=== PATIENT | female | born 1950 | race Caucasian/White ===

== ENCOUNTER → 2017-11-27 | Outpatient (CLI) | payer MEDICARE ==
[~2017-11-27] MED LIST: AZIT250 PO; BREO ELLIPTA 11 EACH IH; CEFP250 PO; CEFU500 PO; CITA20 MT; CYCL10 PO; DOCU100 PO; DULO30 PO; GABA300 PO; LORA2 PO; MELO7.5 PO; MORP30 PO; NAPR500 PO; NEBI5 PO; OXYACE5T PO; OXYC30ER PO; PRED10 PO; Prednisone20 MG PO; TEMA15 PO; TRAZ50 PO
[2017-11-27 17:01] LABS: Hematocrit 44.7 % (33.0-51.0); Hemoglobin 12.8 g/dL (11.5-16.0); Mean Corpuscular HGB 31.3 pg (26.0-34.0); Mean Corpuscular HGB Conc 28.6 g/dL (31.5-36.5); Mean Corpuscular Volume 109 fL (80-100); Mean Platelet Volume 12.2 fL (9.1-12.4); Platelet Count 227 K/mm3 (150-400); RDW Standard Deviation 66.4 fL (35.1-46.3); Red Blood Cell Count 4.09 M/mm3 (3.80-5.20)
[2017-11-27 17:24] LABS: Alanine Aminotransfer (ALT/SGP 33 U/L (12-78); Albumin/Globulin Ratio 1.7 (0.8-1.8); Alk Phos 354 U/L (50-136); Anion Gap 5 mmol/L (6-16); Aspartate Aminotrans (AST/SGOT 27 U/L (12-37); Bilirubin, Total 0.3 mg/dL (0.1-1.0); Blood Urea Nitrogen 13 mg/dL (8-24); CO2, Blood 27 mmol/L (21-32); Calcium, Blood 9.5 mg/dL (8.5-10.1); Chloride, Blood 109 mmol/L (98-108); Creatinine, Blood 0.81 mg/dL (0.40-1.00); Globulin, Blood 2.3 g/dL (2.2-4.0); Glomerular Filtration Rate >60 (60-); Glucose, Blood 84 mg/dL (70-99); Potassium, Blood 4.1 mmol/L (3.5-5.5); Sodium, Blood 141 mmol/L (136-145); Total Protein, Blood 6.3 g/dL (6.4-8.2)
[2017-11-27 18:35] LABS: BASOPHILS PERCENT MAN 0 % (0-2); EOSINOPHILS PERCENT MAN 0 % (0-6); LYMPHOCYTES ABSOLUTE MAN 235.28 K/mm3 (0.84-5.20); LYMPHOCYTES PERCENT MAN 94 % (21-46); MONOCYTES PERCENT MAN 0 % (4-13); NEUTROPHILS ABSOLUTE MAN 15.01 K/mm3 (1.96-9.15); SEG NEUTROPHILS PERCENT MAN 6 % (41-73); TOTAL CELLS COUNTED 100
== END | disposition home or self-care (01) ==
LOC: LAB SHORT 16:43 → LAB 16:43
PROVIDERS: Internal Medicine Hematology & Oncology
DX: C91.10 Chronic lymphocytic leukemia of B-cell type not having achieved remission (principal)
CPT/HCPCS: 80053; 85025

== ENCOUNTER → 2017-12-25 | Outpatient (CLI) | payer MEDICARE ==
[2017-12-25 17:36] LABS: Hematocrit 41.4 % (33.0-51.0); Hemoglobin 12.2 g/dL (11.5-16.0); Mean Corpuscular HGB 32.2 pg (26.0-34.0); Mean Corpuscular HGB Conc 29.5 g/dL (31.5-36.5); Mean Corpuscular Volume 109 fL (80-100); Mean Platelet Volume 12.2 fL (9.1-12.4); Platelet Count 192 K/mm3 (150-400); RDW Coefficient Variation 17.5 % (11.7-14.2); RDW Standard Deviation 63.8 fL (35.1-46.3); Red Blood Cell Count 3.79 M/mm3 (3.80-5.20)
[2017-12-25 17:58] LABS: IMMATURE GRAN ABSOLUTE AUTO 0.47 K/mm3 (0.00-0.10); IMMATURE GRAN PERCENT AUTO 0 % (0-1)
[2017-12-25 18:05] LABS: BASOPHILS PERCENT MAN 0 % (0-2); EOSINOPHILS PERCENT MAN 0 % (0-6); LYMPHOCYTES ABSOLUTE MAN 205.32 K/mm3 (0.84-5.20); LYMPHOCYTES PERCENT MAN 96 % (21-46); MONOCYTES PERCENT MAN 0 % (4-13); NEUTROPHILS ABSOLUTE MAN 8.55 K/mm3 (1.96-9.15); SEG NEUTROPHILS PERCENT MAN 4 % (41-73); TOTAL CELLS COUNTED 100
[2017-12-25 18:49] LABS: White Blood Cell Count 213.88 K/mm3 (4.00-11.30)
== END | disposition home or self-care (01) ==
LOC: LAB SHORT 11:52 → LAB 11:52
PROVIDERS: Internal Medicine Hematology & Oncology
DX: C91.10 Chronic lymphocytic leukemia of B-cell type not having achieved remission (principal)
CPT/HCPCS: 85025

== ENCOUNTER → 2018-02-18 | Outpatient (CLI) | payer MEDICARE ==
[2018-02-18 16:50] LABS: Hematocrit 43.8 % (33.0-51.0); Hemoglobin 13.2 g/dL (11.5-16.0); Mean Corpuscular HGB 32.2 pg (26.0-34.0); Mean Corpuscular HGB Conc 30.1 g/dL (31.5-36.5); Mean Corpuscular Volume 107 fL (80-100); Mean Platelet Volume 12.7 fL (9.1-12.4); Platelet Count 219 K/mm3 (150-400); RDW Coefficient Variation 17.1 % (11.7-14.2); RDW Standard Deviation 61.9 fL (35.1-46.3)
[2018-02-18 16:57] LABS: White Blood Cell Count 198.44 K/mm3 (4.00-11.30)
[2018-02-18 17:29] LABS: BASOPHILS PERCENT MAN 0 % (0-2); EOSINOPHILS PERCENT MAN 0 % (0-6); LYMPHOCYTES ABSOLUTE MAN 198.44 K/mm3 (0.84-5.20); LYMPHOCYTES PERCENT MAN 100 % (21-46); MONOCYTES PERCENT MAN 0 % (4-13); TOTAL CELLS COUNTED 100
[2018-02-18 17:32] LABS: SEG NEUTROPHILS PERCENT MAN 0 % (41-73)
== END | disposition home or self-care (01) ==
LOC: LAB SHORT 11:00 → LAB 11:00
PROVIDERS: Internal Medicine Hematology & Oncology
DX: C91.10 Chronic lymphocytic leukemia of B-cell type not having achieved remission (principal)
CPT/HCPCS: 85025

== ENCOUNTER → 2018-03-14 | Outpatient (CLI) | payer MEDICARE | END | disposition home or self-care (01) | LOC: PLD 12:48 → LAB SHORT 12:48 | DX: C44.90 Unspecified malignant neoplasm of skin, unspecified (principal) | CPT/HCPCS: 88305 ==

== ENCOUNTER → 2018-04-23 | Outpatient (CLI) | payer MEDICARE, OTHER ==
[~2018-04-23] MED LIST changes: +DEXA1 PO; +DICL75ER PO; +Flexeril5 MG; +Lyrica150 MG PO; +NYSTRIT TOP; +ONDA4ODT SL; +PRED5 PO; +TOPI25 PO
[2018-04-23 10:37] LABS: Hematocrit 40.7 % (33.0-51.0); Hemoglobin 13.3 g/dL (11.5-16.0); Mean Corpuscular HGB 33.3 pg (26.0-34.0); Mean Corpuscular HGB Conc 32.7 g/dL (31.5-36.5); Mean Corpuscular Volume 102 fL (80-100); Mean Platelet Volume 11.2 fL (9.1-12.4); Platelet Count 150 K/mm3 (150-400); RDW Standard Deviation 69.9 fL (35.1-46.3); Red Blood Cell Count 3.99 M/mm3 (3.80-5.20)
[2018-04-23 10:51] LABS: White Blood Cell Count 88.74 K/mm3 (4.00-11.30)
[2018-04-23 10:52] LABS: Magnesium, Blood 2.3 mg/dL (1.6-2.4)
[2018-04-23 10:54] LABS: Alanine Aminotransfer (ALT/SGP 294 U/L (12-78); Albumin, Blood 3.1 g/dL (3.4-5.0); Albumin/Globulin Ratio 1.4 (0.8-1.8); Alk Phos 299 U/L (50-136); Anion Gap 11 mmol/L (6-16); Aspartate Aminotrans (AST/SGOT 67 U/L (12-37); Bilirubin, Total 0.7 mg/dL (0.1-1.0); Blood Urea Nitrogen 29 mg/dL (8-24); Bun/Creatinine Ratio 40.3 (12.0-20.0); CO2, Blood 21 mmol/L (21-32); Calcium, Blood 8.4 mg/dL (8.5-10.1); Chloride, Blood 109 mmol/L (98-108); Creatinine, Blood 0.72 mg/dL (0.40-1.00); Globulin, Blood 2.2 g/dL (2.2-4.0); Glomerular Filtration Rate >60 (60-); Glucose, Blood 87 mg/dL (70-99); Potassium, Blood 4.2 mmol/L (3.5-5.5); Sodium, Blood 141 mmol/L (136-145); Total Protein, Blood 5.3 g/dL (6.4-8.2)
[2018-04-23 12:07] LABS: BASOPHILS PERCENT MAN 0 % (0-2); EOSINOPHILS PERCENT MAN 0 % (0-6); LYMPHOCYTES ABSOLUTE MAN 81.64 K/mm3 (0.84-5.20); LYMPHOCYTES PERCENT MAN 92 % (21-46); MONOCYTES ABSOLUTE MAN 0.88 K/mm3 (0.16-1.47); MONOCYTES PERCENT MAN 1 % (4-13); NEUTROPHILS ABSOLUTE MAN 6.21 K/mm3 (1.96-9.15); SEG NEUTROPHILS PERCENT MAN 7 % (41-73); TOTAL CELLS COUNTED 100
== END | disposition home or self-care (01) ==
LOC: LAB SHORT 10:24 → LAB 10:24
PROVIDERS: Internal Medicine Hematology & Oncology
DX: C34.90 Malignant neoplasm of unspecified part of unspecified bronchus or lung (principal)
CPT/HCPCS: 80053; 83735; 85025

== ENCOUNTER 2018-04-27 10:00 | Emergency (ER) | payer MEDICARE, OTHER ==
[~2018-04-27] VITALS: Ht 172.7 cm; Wt 99.3 kg
[~2018-04-27 10:00] MED LIST changes: -DEXA1 PO; -DICL75ER PO; -Flexeril5 MG; -Lyrica150 MG PO; -NYSTRIT TOP; -ONDA4ODT SL; -PRED5 PO; -TOPI25 PO
[2018-04-27] MEDS ORDERED: Lyrica150 MG PO (10:17)
[2018-04-27] MEDS ORDERED: Flexeril5 MG (10:18)
[2018-04-27] MEDS ORDERED: TOPI25 PO (10:19)
[2018-04-27] MEDS ORDERED: PRED5 PO (10:20)
[2018-04-27 11:28] LABS: Hematocrit 39.4 % (33.0-51.0); Mean Corpuscular HGB 34.1 pg (26.0-34.0); Mean Corpuscular Volume 103 fL (80-100); Mean Platelet Volume 10.8 fL (9.1-12.4); NRBC ABSOLUTE 0.05 K/mm3 (0.00-0.02); NRBC Auto 0.1 /100 WBC (0.0-0.2); Platelet Count 141 K/mm3 (150-400); RDW Coefficient Variation 18.3 % (11.7-14.2); Red Blood Cell Count 3.81 M/mm3 (3.80-5.20)
[2018-04-27 11:29] LABS: White Blood Cell Count 99.33 K/mm3 (4.00-11.30)
[2018-04-27 11:42] LABS: Anion Gap 8 mmol/L (6-16); Blood Urea Nitrogen 30 mg/dL (8-24); Bun/Creatinine Ratio 46.3 (12.0-20.0); CO2, Blood 24 mmol/L (21-32); Calcium, Blood 8.6 mg/dL (8.5-10.1); Chloride, Blood 108 mmol/L (98-108); Creatinine, Blood 0.65 mg/dL (0.40-1.00); Glomerular Filtration Rate >60 (60-); Glucose, Blood 115 mg/dL (70-99); Potassium, Blood 4.7 mmol/L (3.5-5.5); Sodium, Blood 140 mmol/L (136-145)
[2018-04-27 11:48] LABS: BASOPHILS PERCENT MAN 0 % (0-2); EOSINOPHILS PERCENT MAN 0 % (0-6); LYMPHOCYTES % ATYPICAL MANUAL 13 % (0-0); LYMPHOCYTES ABSOLUTE MAN 80.45 K/mm3 (0.84-5.20); LYMPHOCYTES PERCENT MAN 68 % (21-46); MONOCYTES PERCENT MAN 0 % (4-13); NEUTROPHILS ABSOLUTE MAN 18.87 K/mm3 (1.96-9.15); SEG NEUTROPHILS PERCENT MAN 19 % (41-73); TOTAL CELLS COUNTED 100
[2018-04-27] MEDS ORDERED: NYSTRIT TOP (12:47)
[2018-04-30] MEDS ORDERED: DEXA1 PO (16:20)
[2018-04-30] MEDS ORDERED: DICL75ER PO (16:21)
[2018-04-30] MEDS ORDERED: ONDA4ODT SL (16:22)
== END 2018-04-27 13:37 | disposition home or self-care (01) ==
LOC: ER 10:00
PROVIDERS: Emergency Medicine
DX: B37.2 Candidiasis of skin and nail (principal); L98.429 Non-pressure chronic ulcer of back with unspecified severity; C91.10 Chronic lymphocytic leukemia of B-cell type not having achieved remission; F17.210 Nicotine dependence, cigarettes, uncomplicated; Z79.899 Other long term (current) drug therapy; Z79.52 Long term (current) use of systemic steroids
CPT/HCPCS: 74177; 80048; 83605; 85025; 99284-25; Q9967

== ENCOUNTER 2018-04-29 09:41 | Day surgery (SDC) | payer MEDICARE, OTHER ==
[~2018-04-29 09:41] MED LIST changes: +Flexeril5 MG; +Lyrica150 MG PO; +NYSTRIT TOP; +PRED5 PO; +TOPI25 PO
[2018-04-30] MEDS ORDERED: DEXA1 PO (16:20)
[2018-04-30] MEDS ORDERED: DICL75ER PO (16:21)
[2018-04-30] MEDS ORDERED: ONDA4ODT SL (16:22)
== END 2018-04-29 22:40 | disposition home or self-care (01) ==
LOC: WOUND 09:41
DX: L89.152 Pressure ulcer of sacral region, stage 2 (principal); C91.90 Lymphoid leukemia, unspecified not having achieved remission
CPT/HCPCS: G0463

== ENCOUNTER 2018-05-02 08:39 | Day surgery (SDC) | payer MEDICARE, OTHER ==
[~2018-05-02] VITALS: Ht 177.8 cm; Wt 99.3 kg
[~2018-05-02 08:39] MED LIST changes: +DEXA1 PO; +DICL75ER PO; +ONDA4ODT SL
== END 2018-05-02 22:38 | disposition home or self-care (01) ==
LOC: ORSCMMR 08:39 → ORD 10:15 → ORSCMMR 10:15
PROVIDERS: Surgery
PROC: B5131ZA Fluoroscopy of Right Jugular Veins using Low Osmolar Contrast, Guidance (ICD-10-PCS; principal; 2018-05-02 10:15)
PROC: 05HM33Z Insertion of Infusion Device into Right Internal Jugular Vein, Percutaneous Approach (ICD-10-PCS; principal; 2018-05-02 10:15)
DX: C34.90 Malignant neoplasm of unspecified part of unspecified bronchus or lung (principal); K21.9 Gastro-esophageal reflux disease without esophagitis; Z87.891 Personal history of nicotine dependence; Z79.899 Other long term (current) drug therapy
CPT/HCPCS: 77001; 93005; 93010; C1788; J0690; J1642; J2250; J3010; J7120

== ENCOUNTER → 2018-05-03 | Outpatient (CLI) | payer MEDICARE, OTHER ==
[~2018-05-03] MED LIST changes: +ALPR.25 PO; +DULERA 200 MCG/13 GM INH; +FURO20 PO; +LISI5 PO; +NYST100000 PO; +Nystatin15 GM TOP; +TIOT18 INH; +Zithromax250 MG PO
[2018-05-03 12:43] LABS: Magnesium, Blood 2.2 mg/dL (1.6-2.4)
[2018-05-03 13:05] LABS: Alanine Aminotransfer (ALT/SGP 103 U/L (12-78); Albumin, Blood 2.7 g/dL (3.4-5.0); Albumin/Globulin Ratio 1.2 (0.8-1.8); Alk Phos 285 U/L (50-136); Anion Gap 8 mmol/L (6-16); Aspartate Aminotrans (AST/SGOT 41 U/L (12-37); Bilirubin, Total 1.5 mg/dL (0.1-1.0); Blood Urea Nitrogen 28 mg/dL (8-24); Bun/Creatinine Ratio 35.9 (12.0-20.0); CO2, Blood 24 mmol/L (21-32); Calcium, Blood 8.4 mg/dL (8.5-10.1); Chloride, Blood 107 mmol/L (98-108); Creatinine, Blood 0.78 mg/dL (0.40-1.00); Globulin, Blood 2.3 g/dL (2.2-4.0); Glomerular Filtration Rate >60 (60-); Glucose, Blood 186 mg/dL (70-99); Potassium, Blood 4.1 mmol/L (3.5-5.5); Sodium, Blood 139 mmol/L (136-145)
== END | disposition home or self-care (01) ==
LOC: LAB SHORT 07:50 → LAB 07:50
PROVIDERS: Internal Medicine Hematology & Oncology
DX: C34.90 Malignant neoplasm of unspecified part of unspecified bronchus or lung (principal); C91.10 Chronic lymphocytic leukemia of B-cell type not having achieved remission
CPT/HCPCS: 80053; 83735

== ENCOUNTER 2018-05-04 09:49 | Emergency (ER) | payer MEDICARE, OTHER ==
[~2018-05-04] VITALS: Ht 172.7 cm; Wt 99.3 kg
[~2018-05-04 09:49] MED LIST changes: -ALPR.25 PO; -DULERA 200 MCG/13 GM INH; -FURO20 PO; -LISI5 PO; -NYST100000 PO; -Nystatin15 GM TOP; -TIOT18 INH; -Zithromax250 MG PO
[2018-05-04 10:45] LABS: Hematocrit 38.4 % (33.0-51.0); Hemoglobin 12.3 g/dL (11.5-16.0); Mean Corpuscular HGB 33.5 pg (26.0-34.0); Mean Corpuscular Volume 105 fL (80-100); Mean Platelet Volume 12.1 fL (9.1-12.4); NRBC ABSOLUTE 0.03 K/mm3 (0.00-0.02); Platelet Count 116 K/mm3 (150-400); RDW Coefficient Variation 17.1 % (11.7-14.2); RDW Standard Deviation 63.5 fL (35.1-46.3); Red Blood Cell Count 3.67 M/mm3 (3.80-5.20)
[2018-05-04 10:47] LABS: White Blood Cell Count 94.89 K/mm3 (4.00-11.30)
[2018-05-04 10:58] LABS: Alanine Aminotransfer (ALT/SGP 110 U/L (12-78); Albumin, Blood 2.8 g/dL (3.4-5.0); Albumin/Globulin Ratio 0.8 (0.8-1.8); Alk Phos 316 U/L (50-136); Anion Gap 8 mmol/L (6-16); Aspartate Aminotrans (AST/SGOT 32 U/L (12-37); Blood Urea Nitrogen 29 mg/dL (8-24); Bun/Creatinine Ratio 40.7 (12.0-20.0); CO2, Blood 26 mmol/L (21-32); Calcium, Blood 9.3 mg/dL (8.5-10.1); Chloride, Blood 108 mmol/L (98-108); Creatinine, Blood 0.71 mg/dL (0.40-1.00); Globulin, Blood 3.7 g/dL (2.2-4.0); Glomerular Filtration Rate >60 (60-); Glucose, Blood 144 mg/dL (70-99); Potassium, Blood 4.1 mmol/L (3.5-5.5); Sodium, Blood 142 mmol/L (136-145); Total Protein, Blood 6.5 g/dL (6.4-8.2); Troponin I 0.039 ng/mL (0.000-0.040)
[2018-05-04 11:11] LABS: BAND PERCENT MAN 1 % (0-8); BASOPHILS PERCENT MAN 0 % (0-2); EOSINOPHILS PERCENT MAN 0 % (0-6); LYMPHOCYTES ABSOLUTE MAN 87.29 K/mm3 (0.84-5.20); LYMPHOCYTES PERCENT MAN 92 % (21-46); MONOCYTES ABSOLUTE MAN 0.94 K/mm3 (0.16-1.47); MONOCYTES PERCENT MAN 1 % (4-13); MYELOCYTE ABSOLUTE MAN 0.94 K/mm3 (0.00-0.00); MYELOCYTE PERCENT MAN 1 % (0-0); NEUTROPHILS ABSOLUTE MAN 5.69 K/mm3 (1.96-9.15); SEG NEUTROPHILS PERCENT MAN 5 % (41-73); TOTAL CELLS COUNTED 100
[2018-05-04 14:34] LABS: Blood, Urine 4+ (Neg); Color, Urine Yellow (P-Yellow); Glucose Qualitative, Urine Neg (Neg); Ketones, Urine 1+ (Neg); Leukocyte Esterase, Urine 1+ (Neg); Nitrite, Urine Neg (Neg); Protein, Urine 2+ (Neg); Specific Gravity, Urine 1.015 (1.003-1.022); Urobilinogen, Urine 3+ (Normal)
[2018-05-04 14:53] LABS: Bilirubin, Urine 1+ (Neg)
[2018-05-04 14:54] LABS: Amorphous Light (0-Heavy); Appearance, Urine Clear (Clear); Bacteria Few /hpf; Red Blood Cells, Urine 0-2 /hpf (0-2); Squamous Epithelial Cells Few /hpf (Few)
[2018-05-04] MEDS ORDERED: NYST100000 PO (16:02)
[2018-05-04] MEDS ORDERED: Zithromax250 MG PO (16:02)
[2018-05-05] MEDS ORDERED: Nystatin15 GM TOP (00:27)
== END 2018-05-04 16:47 | disposition home or self-care (01) ==
LOC: ER 09:49
PROVIDERS: Emergency Medicine
DX: J40 Bronchitis, not specified as acute or chronic (principal); C91.10 Chronic lymphocytic leukemia of B-cell type not having achieved remission; B37.0 Candidal stomatitis; C34.90 Malignant neoplasm of unspecified part of unspecified bronchus or lung; F17.210 Nicotine dependence, cigarettes, uncomplicated; Z79.899 Other long term (current) drug therapy
CPT/HCPCS: 36415; 71046; 80053; 81001; 83605; 84484; 85025; 87077; 87086; 87186; 93005; 93010; 94640; 94644; 96361; 96374; 96375; 99284-25; J1885; J2930; J3010; J7030

== ENCOUNTER 2018-05-04 20:50 | Inpatient (IN) | payer MEDICARE, OTHER ==
[~2018-05-04] VITALS: Ht 172.7 cm; Wt 100.5 kg
[~2018-05-04 20:50] MED LIST changes: +NYST100000 PO; +Zithromax250 MG PO
[2018-05-05] MEDS ORDERED: Nystatin15 GM TOP (00:27)
[2018-05-05 01:16] LABS: Adenovirus Not Detected (NOT DETECT); Bordetella pertussis Not Detected (NOT DETECT); Chlamydophila pneumoniae Not Detected (NOT DETECT); Coronavirus 229E Not Detected (NOT DETECT); Coronavirus HKU1 Not Detected (NOT DETECT); Coronavirus NL63 Not Detected (NOT DETECT); Coronavirus OC43 Not Detected (NOT DETECT); Human Metapneumovirus Not Detected (NOT DETECT); Human Rhinovirus/Enterovirus Not Detected (NOT DETECT); Influenza A/2009-H1 Not Detected (NOT DETECT); Influenza A/H1 Not Detected (NOT DETECT); Influenza A/H3 Not Detected (NOT DETECT); Influenza B Not Detected (NOT DETECT); Mycoplasma pneumoniae Not Detected (NOT DETECT); Parainfluenza Virus 1 Not Detected (NOT DETECT); Parainfluenza Virus 2 Not Detected (NOT DETECT); Parainfluenza Virus 3 Not Detected (NOT DETECT); Parainfluenza Virus 4 Not Detected (NOT DETECT); Respiratory Syncytial Virus Not Detected (NOT DETECT)
[2018-05-05 02:33] LABS: Influenza A Not Detected (NOT DETECT)
[2018-05-05 10:48] LABS: Hematocrit 39.3 % (33.0-51.0); Hemoglobin 12.4 g/dL (11.5-16.0); Mean Corpuscular HGB 33.4 pg (26.0-34.0); Mean Corpuscular HGB Conc 31.6 g/dL (31.5-36.5); Mean Corpuscular Volume 106 fL (80-100); Mean Platelet Volume 11.7 fL (9.1-12.4); NRBC ABSOLUTE 0.02 K/mm3 (0.00-0.02); Platelet Count 155 K/mm3 (150-400); RDW Coefficient Variation 17.1 % (11.7-14.2); RDW Standard Deviation 64.4 fL (35.1-46.3); Red Blood Cell Count 3.71 M/mm3 (3.80-5.20)
[2018-05-05 10:50] LABS: White Blood Cell Count 115.21 K/mm3 (4.00-11.30)
[2018-05-05 11:08] LABS: Anion Gap 10 mmol/L (6-16); Blood Urea Nitrogen 28 mg/dL (8-24); Bun/Creatinine Ratio 40.9 (12.0-20.0); CO2, Blood 24 mmol/L (21-32); Chloride, Blood 105 mmol/L (98-108); Creatinine, Blood 0.68 mg/dL (0.40-1.00); Glomerular Filtration Rate >60 (60-); Glucose, Blood 196 mg/dL (70-99); Potassium, Blood 3.6 mmol/L (3.5-5.5); Sodium, Blood 139 mmol/L (136-145)
[2018-05-06 04:50] LABS: Hematocrit 38.1 % (33.0-51.0); Mean Corpuscular HGB 33.8 pg (26.0-34.0); Mean Corpuscular HGB Conc 31.5 g/dL (31.5-36.5); Mean Corpuscular Volume 107 fL (80-100); Mean Platelet Volume 11.6 fL (9.1-12.4); NRBC ABSOLUTE 0.02 K/mm3 (0.00-0.02); Platelet Count 171 K/mm3 (150-400); RDW Coefficient Variation 17.2 % (11.7-14.2); RDW Standard Deviation 65.8 fL (35.1-46.3); Red Blood Cell Count 3.55 M/mm3 (3.80-5.20)
[2018-05-06 04:55] LABS: BASOPHILS ABSOLUTE AUTO 0.02 K/mm3 (0.00-0.23); BASOPHILS PERCENT AUTO 0 % (0-2); EOSINOPHILS PERCENT AUTO 0 % (0-6); IMMATURE GRAN ABSOLUTE AUTO 0.39 K/mm3 (0.00-0.10); IMMATURE GRAN PERCENT AUTO 0 % (0-1); LYMPHOCYTES ABSOLUTE AUTO 98.37 K/mm3 (0.84-5.20); LYMPHOCYTES PERCENT AUTO 90 % (21-46); MONOCYTES ABSOLUTE AUTO 1.14 K/mm3 (0.16-1.47); MONOCYTES PERCENT AUTO 1 % (4-13); NEUTROPHILS ABSOLUTE AUTO 9.48 K/mm3 (1.96-9.15); NEUTROPHILS PERCENT AUTO 9 % (41-73)
[2018-05-06 05:13] LABS: Alanine Aminotransfer (ALT/SGP 90 U/L (12-78); Albumin, Blood 2.5 g/dL (3.4-5.0); Albumin/Globulin Ratio 0.7 (0.8-1.8); Alk Phos 296 U/L (50-136); Anion Gap 9 mmol/L (6-16); Aspartate Aminotrans (AST/SGOT 20 U/L (12-37); Bilirubin, Total 0.5 mg/dL (0.1-1.0); Blood Urea Nitrogen 38 mg/dL (8-24); Bun/Creatinine Ratio 53.7 (12.0-20.0); CO2, Blood 26 mmol/L (21-32); Chloride, Blood 106 mmol/L (98-108); Creatinine, Blood 0.71 mg/dL (0.40-1.00); Globulin, Blood 3.8 g/dL (2.2-4.0); Glomerular Filtration Rate >60 (60-); Glucose, Blood 157 mg/dL (70-99); Potassium, Blood 4.3 mmol/L (3.5-5.5); Sodium, Blood 141 mmol/L (136-145); Total Protein, Blood 6.3 g/dL (6.4-8.2)
[2018-05-06 13:05] LABS: Magnesium, Blood 2.2 mg/dL (1.6-2.4); Troponin I <0.015 ng/mL (0.000-0.040)
[2018-05-06 13:06] LABS: Thyroid Stimulating Hormone 0.412 uIU/mL (0.360-4.800)
[2018-05-07 05:42] LABS: Hematocrit 37.7 % (33.0-51.0); Hemoglobin 11.5 g/dL (11.5-16.0); Mean Corpuscular HGB 33.1 pg (26.0-34.0); Mean Corpuscular HGB Conc 30.5 g/dL (31.5-36.5); Mean Corpuscular Volume 109 fL (80-100); Mean Platelet Volume 11.3 fL (9.1-12.4); Platelet Count 188 K/mm3 (150-400); RDW Coefficient Variation 17.2 % (11.7-14.2); RDW Standard Deviation 67.2 fL (35.1-46.3); Red Blood Cell Count 3.47 M/mm3 (3.80-5.20)
[2018-05-07 06:16] LABS: Alanine Aminotransfer (ALT/SGP 107 U/L (12-78); Albumin, Blood 2.4 g/dL (3.4-5.0); Albumin/Globulin Ratio 0.7 (0.8-1.8); Alk Phos 316 U/L (50-136); Anion Gap 7 mmol/L (6-16); Aspartate Aminotrans (AST/SGOT 39 U/L (12-37); Bilirubin, Total 0.5 mg/dL (0.1-1.0); Blood Urea Nitrogen 45 mg/dL (8-24); CO2, Blood 27 mmol/L (21-32); Calcium, Blood 9.6 mg/dL (8.5-10.1); Chloride, Blood 104 mmol/L (98-108); Creatinine, Blood 0.69 mg/dL (0.40-1.00); Globulin, Blood 3.6 g/dL (2.2-4.0); Glomerular Filtration Rate >60 (60-); Glucose, Blood 172 mg/dL (70-99); Magnesium, Blood 2.2 mg/dL (1.6-2.4); Potassium, Blood 4.6 mmol/L (3.5-5.5); Sodium, Blood 138 mmol/L (136-145)
[2018-05-07 06:39] LABS: BASOPHILS PERCENT MAN 0 % (0-2); EOSINOPHILS PERCENT MAN 0 % (0-6); LYMPHOCYTES PERCENT MAN 84 % (21-46); MONOCYTES ABSOLUTE MAN 1.06 K/mm3 (0.16-1.47); MONOCYTES PERCENT MAN 1 % (4-13); NEUTROPHILS ABSOLUTE MAN 16.03 K/mm3 (1.96-9.15); SEG NEUTROPHILS PERCENT MAN 15 % (41-73); TOTAL CELLS COUNTED 100
[2018-05-07 06:51] LABS: White Blood Cell Count 106.91 K/mm3 (4.00-11.30)
[2018-05-08 05:24] LABS: Hematocrit 37.1 % (33.0-51.0); Hemoglobin 11.4 g/dL (11.5-16.0); Mean Corpuscular HGB 32.8 pg (26.0-34.0); Mean Corpuscular HGB Conc 30.7 g/dL (31.5-36.5); Mean Corpuscular Volume 107 fL (80-100); NRBC ABSOLUTE 0.02 K/mm3 (0.00-0.02); Platelet Count 210 K/mm3 (150-400); RDW Coefficient Variation 16.8 % (11.7-14.2); RDW Standard Deviation 63.3 fL (35.1-46.3); Red Blood Cell Count 3.48 M/mm3 (3.80-5.20)
[2018-05-08 05:42] LABS: Alanine Aminotransfer (ALT/SGP 121 U/L (12-78); Albumin, Blood 2.6 g/dL (3.4-5.0); Albumin/Globulin Ratio 0.8 (0.8-1.8); Alk Phos 321 U/L (50-136); Anion Gap 4 mmol/L (6-16); Aspartate Aminotrans (AST/SGOT 38 U/L (12-37); Bilirubin, Total 0.5 mg/dL (0.1-1.0); Blood Urea Nitrogen 48 mg/dL (8-24); CO2, Blood 31 mmol/L (21-32); Calcium, Blood 9.6 mg/dL (8.5-10.1); Chloride, Blood 102 mmol/L (98-108); Creatinine, Blood 0.81 mg/dL (0.40-1.00); Globulin, Blood 3.3 g/dL (2.2-4.0); Glomerular Filtration Rate >60 (60-); Glucose, Blood 160 mg/dL (70-99); Sodium, Blood 137 mmol/L (136-145); Total Protein, Blood 5.9 g/dL (6.4-8.2)
[2018-05-08 05:51] LABS: White Blood Cell Count 108.04 K/mm3 (4.00-11.30)
[2018-05-08 06:21] LABS: BAND PERCENT MAN 1 % (0-8); BASOPHILS PERCENT MAN 0 % (0-2); EOSINOPHILS PERCENT MAN 0 % (0-6); LYMPHOCYTES % ATYPICAL MANUAL 4 % (0-0); LYMPHOCYTES ABSOLUTE MAN 87.51 K/mm3 (0.84-5.20); LYMPHOCYTES PERCENT MAN 77 % (21-46); MONOCYTES ABSOLUTE MAN 1.08 K/mm3 (0.16-1.47); MONOCYTES PERCENT MAN 1 % (4-13); NEUTROPHILS ABSOLUTE MAN 19.44 K/mm3 (1.96-9.15); SEG NEUTROPHILS PERCENT MAN 17 % (41-73); TOTAL CELLS COUNTED 100
[2018-05-09 06:08] LABS: Hematocrit 36.7 % (33.0-51.0); Hemoglobin 11.3 g/dL (11.5-16.0); Mean Corpuscular HGB 32.9 pg (26.0-34.0); Mean Corpuscular HGB Conc 30.8 g/dL (31.5-36.5); Mean Corpuscular Volume 107 fL (80-100); Mean Platelet Volume 10.7 fL (9.1-12.4); Platelet Count 199 K/mm3 (150-400); RDW Coefficient Variation 16.6 % (11.7-14.2); RDW Standard Deviation 63.9 fL (35.1-46.3); Red Blood Cell Count 3.43 M/mm3 (3.80-5.20)
[2018-05-09 06:14] LABS: White Blood Cell Count 77.95 K/mm3 (4.00-11.30)
[2018-05-09 06:29] LABS: Anion Gap 4 mmol/L (6-16); Blood Urea Nitrogen 36 mg/dL (8-24); Bun/Creatinine Ratio 53.6 (12.0-20.0); CO2, Blood 34 mmol/L (21-32); Calcium, Blood 9.2 mg/dL (8.5-10.1); Chloride, Blood 103 mmol/L (98-108); Creatinine, Blood 0.67 mg/dL (0.40-1.00); Glomerular Filtration Rate >60 (60-); Glucose, Blood 77 mg/dL (70-99); Potassium, Blood 4.5 mmol/L (3.5-5.5); Sodium, Blood 141 mmol/L (136-145)
[2018-05-09 07:20] LABS: BAND PERCENT MAN 1 % (0-8); BASOPHILS PERCENT MAN 0 % (0-2); EOSINOPHILS PERCENT MAN 0 % (0-6); LYMPHOCYTES ABSOLUTE MAN 66.25 K/mm3 (0.84-5.20); LYMPHOCYTES PERCENT MAN 85 % (21-46); MONOCYTES ABSOLUTE MAN 2.33 K/mm3 (0.16-1.47); MONOCYTES PERCENT MAN 3 % (4-13); NEUTROPHILS ABSOLUTE MAN 9.35 K/mm3 (1.96-9.15); SEG NEUTROPHILS PERCENT MAN 11 % (41-73); TOTAL CELLS COUNTED 100
[2018-05-10 05:44] LABS: Hematocrit 37.1 % (33.0-51.0); Hemoglobin 11.8 g/dL (11.5-16.0); Mean Corpuscular HGB 33.2 pg (26.0-34.0); Mean Corpuscular HGB Conc 31.8 g/dL (31.5-36.5); Mean Corpuscular Volume 105 fL (80-100); Mean Platelet Volume 10.4 fL (9.1-12.4); NRBC ABSOLUTE 0.03 K/mm3 (0.00-0.02); Platelet Count 211 K/mm3 (150-400); RDW Coefficient Variation 16.8 % (11.7-14.2); RDW Standard Deviation 61.8 fL (35.1-46.3); Red Blood Cell Count 3.55 M/mm3 (3.80-5.20)
[2018-05-10 06:00] LABS: White Blood Cell Count 80.69 K/mm3 (4.00-11.30)
[2018-05-10 06:07] LABS: Anion Gap 5 mmol/L (6-16); Blood Urea Nitrogen 31 mg/dL (8-24); Bun/Creatinine Ratio 54.4 (12.0-20.0); CO2, Blood 34 mmol/L (21-32); Calcium, Blood 9.2 mg/dL (8.5-10.1); Chloride, Blood 102 mmol/L (98-108); Creatinine, Blood 0.57 mg/dL (0.40-1.00); Glomerular Filtration Rate >60 (60-); Glucose, Blood 77 mg/dL (70-99); Potassium, Blood 4.4 mmol/L (3.5-5.5); Sodium, Blood 141 mmol/L (136-145)
[2018-05-10 06:28] LABS: BASOPHILS PERCENT MAN 0 % (0-2); EOSINOPHILS PERCENT MAN 0 % (0-6); LYMPHOCYTES ABSOLUTE MAN 66.16 K/mm3 (0.84-5.20); LYMPHOCYTES PERCENT MAN 82 % (21-46); MONOCYTES PERCENT MAN 0 % (4-13); NEUTROPHILS ABSOLUTE MAN 14.52 K/mm3 (1.96-9.15); SEG NEUTROPHILS PERCENT MAN 18 % (41-73); TOTAL CELLS COUNTED 100
[2018-05-13] MEDS ORDERED: ALPR.25 PO (11:29)
[2018-05-13] MEDS ORDERED: DULERA 200 MCG/13 GM INH (11:30)
[2018-05-13] MEDS ORDERED: LISI5 PO (11:30)
[2018-05-13] MEDS ORDERED: NEBI5 PO (11:31)
[2018-05-13] MEDS ORDERED: TIOT18 INH (11:31)
[2018-05-13] MEDS ORDERED: FURO20 PO (11:34)
== END 2018-05-13 13:04 | disposition home health service (06) | DRG 189 ==
LOC: ER 20:50 → PCU 20:51 → MEDS 05-08 18:01 → ENPENDDIS 05-13 10:00 → MEDS 05-13 13:04
PROVIDERS: Internal Medicine; Nurse Practitioner Acute Care
DX: J96.01 Acute respiratory failure with hypoxia (principal); J44.0 Chronic obstructive pulmonary disease with (acute) lower respiratory infection; I47.1 Supraventricular tachycardia; C34.90 Malignant neoplasm of unspecified part of unspecified bronchus or lung; C79.31 Secondary malignant neoplasm of brain; C79.00 Secondary malignant neoplasm of unspecified kidney and renal pelvis; C78.89 Secondary malignant neoplasm of other digestive organs; B37.0 Candidal stomatitis; C91.10 Chronic lymphocytic leukemia of B-cell type not having achieved remission; J20.9 Acute bronchitis, unspecified; F17.210 Nicotine dependence, cigarettes, uncomplicated; D69.6 Thrombocytopenia, unspecified; Z92.21 Personal history of antineoplastic chemotherapy; Z92.3 Personal history of irradiation; Z79.899 Other long term (current) drug therapy
CPT/HCPCS: 36415; 71046; 77001; 77014; 77280; 77412; 80048; 80053; 81001; 83605; 83735; 83880; 84443; 84484; 85025; 85027; 87040; 87070; 87077; 87081; 87086; 87185; 87186; 87205; 87486; 87581; 87633; 87798; 93005; 93010; 93306; 94640; 94644; 94667; 94760; 94761; 94762; 96361; 96374; 96375; 99284-25; 99285-25; C1751; C1788; J0360; J0690; J0696; J1642; J1650; J1885; J1940; J2250; J2930; J3010; J7030; J7120

== ENCOUNTER 2018-05-15 00:06 | Day surgery (SDC) | payer OTHER ==
[~2018-05-15 00:06] MED LIST changes: +ALPR.25 PO; +DULERA 200 MCG/13 GM INH; +FURO20 PO; +LISI5 PO; +Nystatin15 GM TOP; +TIOT18 INH
== END 2018-05-15 22:42 | disposition home or self-care (01) ==
LOC: WOUND 00:06
PROC: 0HB6XZZ Excision of Back Skin, External Approach (ICD-10-PCS; principal; 2018-05-15)
DX: L89.152 Pressure ulcer of sacral region, stage 2 (principal); C91.90 Lymphoid leukemia, unspecified not having achieved remission
CPT/HCPCS: G0463

== ENCOUNTER 2018-06-13 07:34 | Outpatient (CLI) | payer OTHER | END 2018-06-14 23:01 | disposition home or self-care (01) | LOC: WOUND 07:34 | DX: C34.92 Malignant neoplasm of unspecified part of left bronchus or lung (principal); C91.90 Lymphoid leukemia, unspecified not having achieved remission; L97.821 Non-pressure chronic ulcer of other part of left lower leg limited to breakdown of skin; L97.811 Non-pressure chronic ulcer of other part of right lower leg limited to breakdown of skin; L89.153 Pressure ulcer of sacral region, stage 3 | CPT/HCPCS: 87070; 87077; 87147; 87186; 87205 ==

== ENCOUNTER → 2018-07-31 | Outpatient (CLI) | payer OTHER ==
[2018-07-31 10:58] LABS: Alanine Aminotransfer (ALT/SGP 32 U/L (12-78); Albumin, Blood 3.4 g/dL (3.4-5.0); Albumin/Globulin Ratio 1.7 (0.8-1.8); Alk Phos 227 U/L (50-136); Anion Gap 7 mmol/L (6-16); Aspartate Aminotrans (AST/SGOT 21 U/L (12-37); Bilirubin, Total 0.5 mg/dL (0.1-1.0); Blood Urea Nitrogen 8 mg/dL (8-24); Bun/Creatinine Ratio 12.6 (12.0-20.0); CO2, Blood 27 mmol/L (21-32); Calcium, Blood 8.8 mg/dL (8.5-10.1); Chloride, Blood 106 mmol/L (98-108); Creatinine, Blood 0.64 mg/dL (0.40-1.00); Glomerular Filtration Rate >60 (60-); Glucose, Blood 90 mg/dL (70-99); Potassium, Blood 4.4 mmol/L (3.5-5.5); Sodium, Blood 140 mmol/L (136-145); Total Protein, Blood 5.4 g/dL (6.4-8.2)
== END | disposition home or self-care (01) ==
LOC: LAB SHORT 10:17 → LAB 10:17
PROVIDERS: Internal Medicine Hematology & Oncology
DX: C34.90 Malignant neoplasm of unspecified part of unspecified bronchus or lung (principal)
CPT/HCPCS: 80053; 83735

== ENCOUNTER → 2018-08-28 | Outpatient (CLI) | payer OTHER ==
[2018-08-28 10:34] LABS: Alanine Aminotransfer (ALT/SGP 30 U/L (12-78); Albumin, Blood 3.5 g/dL (3.4-5.0); Albumin/Globulin Ratio 1.8 (0.8-1.8); Alk Phos 254 U/L (50-136); Anion Gap 6 mmol/L (6-16); Aspartate Aminotrans (AST/SGOT 27 U/L (12-37); Bilirubin, Total 0.4 mg/dL (0.1-1.0); Blood Urea Nitrogen 8 mg/dL (8-24); Bun/Creatinine Ratio 12.6 (12.0-20.0); CO2, Blood 28 mmol/L (21-32); Calcium, Blood 8.7 mg/dL (8.5-10.1); Chloride, Blood 108 mmol/L (98-108); Creatinine, Blood 0.64 mg/dL (0.40-1.00); Glomerular Filtration Rate >60 (60-); Glucose, Blood 129 mg/dL (70-99); Magnesium, Blood 1.9 mg/dL (1.6-2.4); Potassium, Blood 4.2 mmol/L (3.5-5.5); Sodium, Blood 142 mmol/L (136-145); Total Protein, Blood 5.5 g/dL (6.4-8.2)
== END | disposition home or self-care (01) ==
LOC: LAB SHORT 10:11 → LAB 10:11
PROVIDERS: Internal Medicine Hematology & Oncology
DX: C34.90 Malignant neoplasm of unspecified part of unspecified bronchus or lung (principal)
CPT/HCPCS: 80053; 83735

== ENCOUNTER → 2018-12-16 | Outpatient (CLI) | payer OTHER ==
[~2018-12-16] MED LIST changes: +Amoxicillin500 MG PO; +CHOL10002 PO; +CRANBERRY250 MG PO; +CYAN500 PO; +IBUP800 PO; +OMEPRAZOLE20 MG PO; +ONDA4ODT MM; +Sulfamethoxazo1 EAC4 PO; +WOMEN'S 50 PLU1 EACH PO
[2018-12-16 17:15] LABS: Alanine Aminotransfer (ALT/SGP 29 U/L (12-78); Albumin, Blood 3.8 g/dL (3.4-5.0); Albumin/Globulin Ratio 2.1 (0.8-1.8); Alk Phos 233 U/L (50-136); Anion Gap 6 mmol/L (6-16); Aspartate Aminotrans (AST/SGOT 26 U/L (12-37); Bilirubin, Total 0.3 mg/dL (0.1-1.0); Blood Urea Nitrogen 16 mg/dL (8-24); Bun/Creatinine Ratio 17.7 (12.0-20.0); CO2, Blood 26 mmol/L (21-32); Calcium, Blood 8.8 mg/dL (8.5-10.1); Chloride, Blood 107 mmol/L (98-108); Globulin, Blood 1.8 g/dL (2.2-4.0); Glomerular Filtration Rate >60 (60-); Glucose, Blood 79 mg/dL (70-99); Sodium, Blood 139 mmol/L (136-145); Total Protein, Blood 5.6 g/dL (6.4-8.2)
== END | disposition home or self-care (01) ==
LOC: LAB 16:45 → LAB SHORT 16:45
PROVIDERS: Internal Medicine Hematology & Oncology
DX: C34.90 Malignant neoplasm of unspecified part of unspecified bronchus or lung (principal)
CPT/HCPCS: 80053

== ENCOUNTER 2018-12-24 20:46 | Inpatient (IN) | payer OTHER ==
[~2018-12-24] VITALS: Ht 172.7 cm; Wt 105.6 kg
[~2018-12-24 20:46] MED LIST changes: -Amoxicillin500 MG PO; -CHOL10002 PO; -CRANBERRY250 MG PO; -CYAN500 PO; -IBUP800 PO; -OMEPRAZOLE20 MG PO; -ONDA4ODT MM; -Sulfamethoxazo1 EAC4 PO; -WOMEN'S 50 PLU1 EACH PO
[2018-12-24] MEDS ORDERED: Sulfamethoxazo1 EAC4 PO (21:11)
[2018-12-24] MEDS ORDERED: OMEPRAZOLE20 MG PO (21:12)
[2018-12-24] MEDS ORDERED: ONDA4ODT MM (21:12)
[2018-12-24] MEDS ORDERED: Amoxicillin500 MG PO (21:12)
[2018-12-24 22:09] LABS: BASOPHILS ABSOLUTE AUTO 0.01 K/mm3 (0.00-0.23); BASOPHILS PERCENT AUTO 0 % (0-2); EOSINOPHILS PERCENT AUTO 0 % (0-6); Hematocrit 26.8 % (33.0-51.0); Hemoglobin 8.8 g/dL (11.5-16.0); Mean Corpuscular HGB 36.7 pg (26.0-34.0); Mean Corpuscular HGB Conc 32.8 g/dL (31.5-36.5); Mean Corpuscular Volume 112 fL (80-100); Mean Platelet Volume 10.4 fL (9.1-12.4); Platelet Count 62 K/mm3 (150-400); RDW Coefficient Variation 17.3 % (11.7-14.2); RDW Standard Deviation 70.5 fL (35.1-46.3); White Blood Cell Count 16.08 K/mm3 (4.00-11.30)
[2018-12-24 22:19] LABS: Alanine Aminotransfer (ALT/SGP 56 U/L (12-78); Albumin/Globulin Ratio 1.2 (0.8-1.8); Alk Phos 233 U/L (50-136); Anion Gap 7 mmol/L (6-16); Aspartate Aminotrans (AST/SGOT 22 U/L (12-37); Bilirubin, Total 0.7 mg/dL (0.1-1.0); Blood Urea Nitrogen 19 mg/dL (8-24); Bun/Creatinine Ratio 24.8 (12.0-20.0); CO2, Blood 26 mmol/L (21-32); Calcium, Blood 8.5 mg/dL (8.5-10.1); Chloride, Blood 105 mmol/L (98-108); Creatinine, Blood 0.77 mg/dL (0.40-1.00); Globulin, Blood 2.4 g/dL (2.2-4.0); Glomerular Filtration Rate >60 (60-); Glucose, Blood 130 mg/dL (70-99); Potassium, Blood 3.8 mmol/L (3.5-5.5); Sodium, Blood 138 mmol/L (136-145); Total Protein, Blood 5.4 g/dL (6.4-8.2)
[2018-12-24 22:20] LABS: IMMATURE GRAN PERCENT AUTO 0 % (0-1); LYMPHOCYTES ABSOLUTE AUTO 15.31 K/mm3 (0.84-5.20); LYMPHOCYTES PERCENT AUTO 95 % (21-46); MONOCYTES ABSOLUTE AUTO 0.67 K/mm3 (0.16-1.47); MONOCYTES PERCENT AUTO 4 % (4-13); NEUTROPHILS ABSOLUTE AUTO 0.09 K/mm3 (1.96-9.15); NEUTROPHILS PERCENT AUTO 1 % (41-73)
[2018-12-24 23:42] LABS: Source, Urine Catheter
[2018-12-24 23:44] LABS: Bilirubin, Urine Neg (Neg); Blood, Urine 3+ (Neg); Glucose Qualitative, Urine Neg (Neg); Ketones, Urine Neg (Neg); Leukocyte Esterase, Urine 1+ (Neg); Nitrite, Urine Neg (Neg); Protein, Urine 2+ (Neg); Urobilinogen, Urine 1+ (Normal)
[2018-12-24 23:46] LABS: Appearance, Urine Clear (Clear); Color, Urine Yellow (P-Yellow)
[2018-12-24 23:49] LABS: Bacteria Mod /hpf; Squamous Epithelial Cells Few /hpf (Few); White Blood Cells, Urine 0-2 /hpf (0-5)
[2018-12-25] MEDS ORDERED: IBUP800 PO (02:35)
[2018-12-25] MEDS ORDERED: WOMEN'S 50 PLU1 EACH PO (02:36)
[2018-12-25] MEDS ORDERED: CRANBERRY250 MG PO (02:36)
[2018-12-25] MEDS ORDERED: CHOL10002 PO (02:36)
[2018-12-25] MEDS ORDERED: CYAN500 PO (02:36)
--- NOTE | 2018-12-25 06:21 | NUR ---
SHIFT SUMMAR/TRANSFER NOTE: PT NEW ED ADMIT TONIGHT. PT ARRIVES TO UNIT VIA STRETCHER, TRANSFER 3-PERS SLIDE TO BED. PT HAS ACUTE BRONCHITIS, AND LUNG CANCER c METS TO SPLEEN, BRAIN, AND KINDEY. A&O X 1-2, PT RESPONDS TO SIMPLE YES/NO QUESTIONS. UNABLE TO FOLLOW DIRECTION, LACKS COORDINATE MOVEMENTS. PT IS RESTLESS AND IMPULSIVE - BED ALARM ON FOR SAFETY. ATTEMPTED TO STAND PT UP WITH GAIT BELT AND FWW 2 PER ASSIST BUT PT DID NOT UNDERSTAND SIMPLE COMMANDS TO STAND. NPO PER ORDERS. MEDIPORT TO R CHEST WALL ACCESSED AND RUNNING NS @ 75 ML/HR X 1 BAG ONLY. PT DENIES PAIN OR DISCOMFORT. WILL CONT TO MONITOR AND PROVIDE CARE UNTIL PRESUMED BY ONCOMING RN.
--- NOTE | 2018-12-25 09:49 | NUR ---
INITIAL PAL CARE CONSULT Case conferenced with pt's RN prior to my visit. She states pt's mentation and level of alertness has improved significantly. Pt is currently able to follow instructions, answer questions and to swallow meds safely. Pt visited in her room. Student nurse providing care at that time. Pt is sitting with bed in high position. She appears uncomfortable in this position and sl sob noted with conversation but pt denies sob and declines offer to help her change position in bed for increased comfort. She appears slightly anxious. She denies RAHMAN, nausea or pain other than a sore knee. She has lyrica ordered but states this does not help her. Discussed requesting order for tylenol PO with RN and pt is agreeable to that. Pt reports she has moved to [facility] and that she is very happy and well cared for there. She confirms that her daughter is her chosen medical POA in the absence of her abiltiy to direct her care. She does not know if her AD was ever completed that was started here during her April of 2018 admission. I did not press further at this time re: advanced care planning as pt seemed to be tiring and growing more anxious with this conversation. I asked the RN to page me if pt's daughter came in to visit. She had called to check in on her mom but had to be at work at 5 am so I will not disturb her at work at this time. Pt was receptive to me or another PC RN returning later to assess s/s and discuss care. I would like to review 's PN and his interpretation of imaging studies done yesterday pm when available. Will cont to work on advanced care planning and completion of AD with pt/rae if that has not been completed. If it has will try to get copy for pt's EMR.
[2018-12-25 10:22] LABS: Hematocrit 24.8 % (33.0-51.0); Hemoglobin 8.3 g/dL (11.5-16.0); Mean Corpuscular HGB 37.2 pg (26.0-34.0); Mean Corpuscular HGB Conc 33.5 g/dL (31.5-36.5); Mean Corpuscular Volume 111 fL (80-100); Mean Platelet Volume 11.5 fL (9.1-12.4); RDW Coefficient Variation 17.1 % (11.7-14.2); RDW Standard Deviation 69.1 fL (35.1-46.3); Red Blood Cell Count 2.23 M/mm3 (3.80-5.20); White Blood Cell Count 14.91 K/mm3 (4.00-11.30)
--- NOTE | 2018-12-25 10:24 | NUR ---
ADDENDUM TO PREV PAL CARE NOTE: In reviewing pt's home medication list, pt also takes ibuprofen 800mg tid. This may help treat her knee pain also. Pt states she was not taking lyrica prior to admission but per home med rec list, lyrica was started in November. I am unsure if of pt's detail clarity/memory. I phoned [facility] and left VM asking if they had an AD or POLST on file and for any other input regarding what has been helpful in the past for pt's joint/musculoskeletal pain, inquired if she had rx for anxiety. Will await a return call from them to answer those questions.
[2018-12-25 10:40] LABS: Platelet Count 44 K/mm3 (150-400)
[2018-12-25 11:03] LABS: Alanine Aminotransfer (ALT/SGP 48 U/L (12-78); Albumin, Blood 2.8 g/dL (3.4-5.0); Albumin/Globulin Ratio 1.1 (0.8-1.8); Alk Phos 171 U/L (50-136); Anion Gap 6 mmol/L (6-16); Aspartate Aminotrans (AST/SGOT 26 U/L (12-37); Blood Urea Nitrogen 16 mg/dL (8-24); Bun/Creatinine Ratio 23.8 (12.0-20.0); CO2, Blood 24 mmol/L (21-32); Calcium, Blood 8.4 mg/dL (8.5-10.1); Chloride, Blood 103 mmol/L (98-108); Creatinine, Blood 0.67 mg/dL (0.40-1.00); Globulin, Blood 2.5 g/dL (2.2-4.0); Glomerular Filtration Rate >60 (60-); Glucose, Blood 115 mg/dL (70-99); Potassium, Blood 3.8 mmol/L (3.5-5.5); Sodium, Blood 133 mmol/L (136-145); Total Protein, Blood 5.3 g/dL (6.4-8.2)
--- NOTE | 2018-12-25 11:50 | NUR ---
TACHYCARDIA-LATE ENTRY DR. HALL CALLED & NOTIFIED THAT PT HR WAS CLIMBING TO THE 160S PER PUMP REBUILDER GEE POOLE. VITALS TAKEN ON THE FLOOR REFEALED THE SAME HR RANGE. DR. HALL AWARE & ORDERED A STAT EKG & 15 CARDIZEM IV. WILL CONTINUE TO MONITOR.
--- NOTE | 2018-12-25 12:16 | NUR ---
HR UPDATE. EKG REVEALED AFIB RVR WITH A RATE IN THE 170S. CARDIZEM PUSHED & BROUGHT DOWN HR TO THE 105 PER PETROL TANKER DRIVER. AFTER 2-3 MINUTES HR INCREASED TO 130-150S. DR. HALL CALLED & NOTIFIED OF THIS. DR. HALL STATED THAT HE DOES NOT BELIEVE THAT THE PT NEEDS TO BE IN PCU BECAUSE HER HEART RATE IS "COMING DOWN". METOPEROL 25MG PO ORDERED & TO BE GIVEN ONCE VERIFIED BY PHARMACY. WILL CONTINUE TO MONITOR.
--- NOTE | 2018-12-25 13:12 | NUR ---
2ND CARDIZEM GIVEN-LATE ENTRY 2ND DOSE OF CARDIZEM GIVEN. PT HR DECREASED FROM 177 TO THE 110-120S. OTHER VITALS STABLE. WILL CONTINUE TO MONITOR. WILL UPDATE DR. HALL IF HR INCREASES.
--- NOTE | 2018-12-25 13:58 | NUR ---
PT TRANSFERING TO PCU DR. HALL ORDERED TO TRANSFER TO U. REPORT GIVEN TO PHIL Ch RN. PHIL STATED NO FURTHER QUESTIONS. THIS RN WAS UNABLE TO GET AHOLD OF PT DAUGHTER. PT BELONGINGS SENT WITH PT.
--- NOTE | 2018-12-25 14:45 | NUR ---
transfer note: Pt arrived to room PCU 16 from medical floor. BP 93 systolically. HR 130-150's per tele. Cardizem gtt started and running at 5mg/hr. Will titrate per orders. LS diminished. BT positve. Pt dozing on and off. Wakes to verbal stimulus and able to answer who she is, and where she is before dozing back off. Bed alarm on and call light in reach. Will monitor and titrate cardizem per orders.
--- NOTE | 2018-12-25 19:36 | NUR ---
SHIFT SUMMARY: Pt resting in bed at this time. Has done well since the arrival to the unit. At arrival pt was placed on cardizem at 5mg/hr for hr in the 140's afib and SBP at 93. Dose was able to be adjusted up to 10mg/hr at about 1730 when SBP increased to 120's. HR was decreasing down to the 110's and then she converted to NSR at about 1900. Cardizem gtt placed on standby at this time. Pt dozed for a few hours after arrival to unit. She woke up and was able to answer questions appropriatly at around 1700. Pt was a heavy moderate 2 person assist to BSC this evening and was able to have a BM. PT is back in bed and stable at this time. Report given to night RN and care was transfered.
--- NOTE | 2018-12-25 20:00 | NUR ---
CARE ASSUMPTION PT CONVERTED FROM AFIB TO NSR @ 1840. CARDIZEM GTT PLACED ON STANDBY. KVO NS INFUSING IN MEDIPORT. PT SLEEPING HEAVILY, WAKES BRIEFLY TO VERBAL STIMULI OR TOUCH. PT ANSWERING Q'S APPROPRIATELY. WILL CONTINUE TO MONITOR AND PROVIDE CARE.
--- NOTE | 2018-12-26 06:09 | NUR ---
SHIFT SUMMARY PT CONVERTED FROM AFIB TO NSR 12/25 @ 1840. CARDIZEM DISCONNECTED FROM PT @ APPROX 1900. PT REMAINING NSR T/O SHIFT. PT SLEEPING HEAVILY T/O SHIFT, WAKING THIS AM A&O X4. VSS. NS @ KVO INFUSING VIA MEDIPORT. WILL CONTINUE TO MONITOR AND PROVIDE CARE UNTIL REPORT OFF TO DAY SHIFT RN.
--- NOTE | 2018-12-26 08:00 | NUR ---
pt laying in bed awake a/ox3, pleasant and cooperative with care, follows commands well, denies pain at this time, lungs are dim t/o, resp even and unlabored, no cough noted, hrr, tele in place running sr per monitor, see strip, trace edema noted to b/l le, ppp+1, cap refill <3sec, vs stable, afebrile, iv site is mediport to c.w. accessed and infusing ns tko, btx4, abd round soft nontender, voids without diff, skin c/w/d, maew, valentin, call light in reach.
[2018-12-26 09:01] LABS: Hematocrit 23.9 % (33.0-51.0); Mean Corpuscular HGB 37.4 pg (26.0-34.0); Mean Corpuscular HGB Conc 33.5 g/dL (31.5-36.5); Mean Corpuscular Volume 112 fL (80-100); Mean Platelet Volume 11.3 fL (9.1-12.4); RDW Coefficient Variation 16.4 % (11.7-14.2); Red Blood Cell Count 2.14 M/mm3 (3.80-5.20); White Blood Cell Count 14.66 K/mm3 (4.00-11.30)
[2018-12-26 09:07] LABS: Platelet Count 32 K/mm3 (150-400)
--- NOTE | 2018-12-26 10:25 | NUR ---
Echocardiogram completed.
--- NOTE | 2018-12-26 13:30 | NUR ---
pt will be going home today, had an echo done, no acute changes this shift. call light in reach.
[2018-12-26] MEDS ORDERED: LEVO750 PO (15:18)
[2018-12-26] MEDS ORDERED: Lopressor 50 mg50 MG PO (15:18)
--- NOTE | 2018-12-26 16:24 | NUR ---
DISCHARGE REVIEWED WITH PT. PT VERBALIZED UNDERSTANDING OF MEDS AND INSTRUCTIONS. STATES WILL CALL FOR F/U APPT WHEN KNOWS SCHEDULE. DEACCESSED MEDIPORT WITH APPROP HEPARIN DOSAGE. DEACCESS WITH Inez TATE RN ASSHAYLEY. PT EDWARD WELL. TELE REMOVED. PENDING RIDE.
--- NOTE | 2018-12-26 18:28 | NUR ---
PT OUT DOOR WITH TRANSPORT IN WHEELCHAIR AT 3691
== END 2018-12-26 17:29 | disposition home or self-care (01) | DRG 871 ==
LOC: ER 20:46 → MEDS 12-25 00:51 → PCU 12-25 01:52 → MEDS 12-25 01:52 → PCU 12-25 14:11
PROVIDERS: Emergency Medicine; Internal Medicine; Physician Assistant; ADMIT Internal Medicine
DX: A41.9 Sepsis, unspecified organism (principal); J18.9 Pneumonia, unspecified organism; G93.41 Metabolic encephalopathy; C91.90 Lymphoid leukemia, unspecified not having achieved remission; E87.1 Hypo-osmolality and hyponatremia; C79.31 Secondary malignant neoplasm of brain; C34.90 Malignant neoplasm of unspecified part of unspecified bronchus or lung; G89.29 Other chronic pain; F17.210 Nicotine dependence, cigarettes, uncomplicated; Z51.5 Encounter for palliative care; I48.91 Unspecified atrial fibrillation; D69.59 Other secondary thrombocytopenia; J20.9 Acute bronchitis, unspecified
CPT/HCPCS: 36415; 70450; 71046; 80053; 81001; 82947; 83605; 85025; 85027; 87086; 93005; 93010; 93308; 93321; 94640; 94760; 96365; 97116; 97162; 99285-25; J0696; J1642; J1650; J1956; J2930; J7030; J7040; P9612

== ENCOUNTER 2019-01-10 08:31 | Inpatient (IN) | payer OTHER ==
[~2019-01-10] VITALS: Ht 177.8 cm; Wt 102.5 kg
[~2019-01-10 08:31] MED LIST changes: +Amoxicillin500 MG PO; +CHOL10002 PO; +CRANBERRY250 MG PO; +CYAN500 PO; -DULERA 200 MCG/13 GM INH; +IBUP800 PO; +LEVO750 PO; +Lopressor 50 mg50 MG PO; -Lyrica150 MG PO; +OMEPRAZOLE20 MG PO; +ONDA4ODT MM; +Sulfamethoxazo1 EAC4 PO; +WOMEN'S 50 PLU1 EACH PO
[2019-01-10 09:03] LABS: Hematocrit 24.2 % (33.0-51.0); Hemoglobin 7.7 g/dL (11.5-16.0); Mean Corpuscular HGB 36.5 pg (26.0-34.0); Mean Corpuscular HGB Conc 31.8 g/dL (31.5-36.5); Mean Corpuscular Volume 115 fL (80-100); Mean Platelet Volume 11.2 fL (9.1-12.4); NRBC ABSOLUTE 0.03 K/mm3 (0.00-0.02); NRBC Auto 0.1 /100 WBC (0.0-0.2); Platelet Count 208 K/mm3 (150-400); RDW Standard Deviation 79.7 fL (35.1-46.3); Red Blood Cell Count 2.11 M/mm3 (3.80-5.20); White Blood Cell Count 40.86 K/mm3 (4.00-11.30)
[2019-01-10 09:12] LABS: Alanine Aminotransfer (ALT/SGP 24 U/L (12-78); Albumin, Blood 2.5 g/dL (3.4-5.0); Albumin/Globulin Ratio 0.9 (0.8-1.8); Alk Phos 287 U/L (50-136); Anion Gap 7 mmol/L (6-16); Aspartate Aminotrans (AST/SGOT 18 U/L (12-37); Bilirubin, Total 0.7 mg/dL (0.1-1.0); Blood Urea Nitrogen 12 mg/dL (8-24); Bun/Creatinine Ratio 16.2 (12.0-20.0); CO2, Blood 28 mmol/L (21-32); Calcium, Blood 8.7 mg/dL (8.5-10.1); Chloride, Blood 108 mmol/L (98-108); Creatinine, Blood 0.74 mg/dL (0.40-1.00); Globulin, Blood 2.8 g/dL (2.2-4.0); Glomerular Filtration Rate >60 (60-); Glucose, Blood 121 mg/dL (70-99); Potassium, Blood 4.1 mmol/L (3.5-5.5); Sodium, Blood 143 mmol/L (136-145); Total Protein, Blood 5.3 g/dL (6.4-8.2)
[2019-01-10 09:16] LABS: Source, Urine Clean Catch
[2019-01-10 09:34] LABS: Bilirubin, Urine Neg (Neg); Blood, Urine Neg (Neg); Glucose Qualitative, Urine Neg (Neg); Ketones, Urine Neg (Neg); Leukocyte Esterase, Urine Neg (Neg); Nitrite, Urine Neg (Neg); Protein, Urine 1+ (Neg); Urobilinogen, Urine 1+ (Normal); pH, Urine 6.5 (5.0-8.0)
[2019-01-10] MEDS ORDERED: PREG150 PO (09:34)
[2019-01-10] MEDS ORDERED: Bactrim Ds Tab1 EACH PO (09:35)
[2019-01-10] MEDS ORDERED: Prinivil10 MG PO (09:36)
[2019-01-10] MEDS ORDERED: OMEPRAZOLE20 MG PO (09:36)
[2019-01-10] MEDS ORDERED: CYCL10 PO (09:36)
[2019-01-10] MEDS ORDERED: Amoxicillin500 MG PO (09:36)
[2019-01-10] MEDS ORDERED: DULERA 200 MCG/13 GM INH ×2 (09:37→12:38)
[2019-01-10] MEDS ORDERED: ONDA4ODT MM (09:37)
[2019-01-10 09:38] LABS: Appearance, Urine Clear (Clear); Color, Urine Yellow (P-Yellow)
[2019-01-10] MEDS ORDERED: ALBU2.5V5 NEB (09:38)
[2019-01-10] MEDS ORDERED: TIOT18 INH (09:38)
[2019-01-10] MEDS ORDERED: Cranberry300 MG PO (09:39)
[2019-01-10] MEDS ORDERED: MUPIROCIN15 GM TP (09:39)
[2019-01-10 10:11] LABS: BAND PERCENT MAN 4 % (0-8); BASOPHILS PERCENT MAN 0 % (0-2); EOSINOPHILS PERCENT MAN 0 % (0-6); LYMPHOCYTES ABSOLUTE MAN 21.65 K/mm3 (0.84-5.20); LYMPHOCYTES PERCENT MAN 53 % (21-46); METAMYELOCYTE ABSOLUTE MAN 1.22 K/mm3 (0.00-0.00); METAMYELOCYTE PERCENT MAN 3 % (0-0); MONOCYTES ABSOLUTE MAN 1.22 K/mm3 (0.16-1.47); MONOCYTES PERCENT MAN 3 % (4-13); NEUTROPHILS ABSOLUTE MAN 16.75 K/mm3 (1.96-9.15); SEG NEUTROPHILS PERCENT MAN 37 % (41-73); TOTAL CELLS COUNTED 100
[2019-01-10] MEDS ORDERED: THERA1 EACH PO (12:18)
[2019-01-10] MEDS ORDERED: CHOL10002 PO (12:19)
[2019-01-10] MEDS ORDERED: CYAN500 PO (12:19)
[2019-01-10] MEDS ORDERED: NYSTRITC TOP (12:20)
[2019-01-10] MEDS ORDERED: ANORO ELLIPTA1 EACH INH (12:36)
[2019-01-10] MEDS ORDERED: Lyrica150 MG PO (12:37)
[2019-01-10] MEDS ORDERED: TOPI25 PO (12:38)
[2019-01-10] MEDS ORDERED: NEBI5 PO (12:39)
[2019-01-10] MEDS ORDERED: TUMS500 MG PO (12:40)
[2019-01-10] MEDS ORDERED: SERT50 PO (12:40)
[2019-01-10] MEDS ORDERED: FURO20 PO (12:41)
[2019-01-10] MEDS ORDERED: IMBRUVICA420 MG PO (12:46)
[2019-01-10] MEDS ORDERED: DICL75ER PO (12:47)
--- NOTE | 2019-01-10 14:04 | NUR ---
NEW ER ADMIT PT ARRIVE TO 358 APPROX 1300 ACCOMPANIED BY HER DAUGHTER. SHE IS ABLE TO TRANSFER FROM [facility] TO BED HOWEVER VERY WEAK, UNSTEADY GAIT, 2 ASSIST. SHE STATE WEAK/FATIGUEDX MULT DAYS. DAUGHTER STATE HX LUNG CA THAT METS TO BRAIN & "ALL OVER". PT IS ORIENTED X3 HOWEVER VERY DROWSY. STATE RECENT INCONTINENCE DT FATIGUE. DX PNEUM, WBC 40, SHE WAS GIVEN IV ANTIBX IN ER. TEMP @ 99.6. LUNGS COARSE W HARSH COUGH, STATE NONPROD. O2 @ 3L 96%. DAUGHTER ASSIST W ADMIT PROCESS. PT ORIENTED TO , CALL SYSTEM, FALL PRECAUTIONS. BED ALARM ON.
[2019-01-10 17:07] LABS: Percent Saturation 6.2 % (15.0-50.0)
--- NOTE | 2019-01-10 22:14 | NUR ---
SINUS RHYTHM WITH PACS RATE 78 PER AUTOMOTIVE BRAKE SPECIALIST
[2019-01-11 05:31] LABS: BASOPHILS ABSOLUTE AUTO 0.04 K/mm3 (0.00-0.23); BASOPHILS PERCENT AUTO 0 % (0-2); EOSINOPHILS PERCENT AUTO 0 % (0-6); Hematocrit 24.3 % (33.0-51.0); Hemoglobin 7.9 g/dL (11.5-16.0); IMMATURE GRAN ABSOLUTE AUTO 0.26 K/mm3 (0.00-0.10); IMMATURE GRAN PERCENT AUTO 1 % (0-1); LYMPHOCYTES ABSOLUTE AUTO 11.85 K/mm3 (0.84-5.20); LYMPHOCYTES PERCENT AUTO 45 % (21-46); MONOCYTES ABSOLUTE AUTO 1.84 K/mm3 (0.16-1.47); MONOCYTES PERCENT AUTO 7 % (4-13); Mean Corpuscular HGB 35.9 pg (26.0-34.0); Mean Corpuscular HGB Conc 32.5 g/dL (31.5-36.5); Mean Platelet Volume 11.2 fL (9.1-12.4); NEUTROPHILS PERCENT AUTO 47 % (41-73); Platelet Count 158 K/mm3 (150-400); RDW Coefficient Variation 21.5 % (11.7-14.2); RDW Standard Deviation 85.1 fL (35.1-46.3); White Blood Cell Count 26.39 K/mm3 (4.00-11.30)
[2019-01-11 05:39] LABS: Mean Corpuscular Volume 111 fL (80-100)
[2019-01-11 05:45] LABS: Anion Gap 7 mmol/L (6-16); Blood Urea Nitrogen 10 mg/dL (8-24); Bun/Creatinine Ratio 15.5 (12.0-20.0); CO2, Blood 25 mmol/L (21-32); Calcium, Blood 8.4 mg/dL (8.5-10.1); Chloride, Blood 110 mmol/L (98-108); Creatinine, Blood 0.65 mg/dL (0.40-1.00); Glomerular Filtration Rate >60 (60-); Glucose, Blood 112 mg/dL (70-99); Potassium, Blood 3.6 mmol/L (3.5-5.5); Sodium, Blood 142 mmol/L (136-145)
--- NOTE | 2019-01-11 05:59 | NUR ---
NOC SHIFT SUMMARY PT IS COOPERATIVE WITH CARE. SHE HAS RECIEVED FLUID BOLUS, 1 UNIT PRBC, AND LASIX IV THIS NIGHT. HAS VOIDED QUITE A LOT. INCONTINENT OF URINE. SHE IS AAOX3, HER RESP AT REST ARE EVEN AND UNLABORED. VSS. NONPRODUCTIVE COUGH AT THIS TIME. HAVE NOT BEEN ABLE TO OBTAIN SPUTUM SAMPLE YET. PT CURRENTLY SLEEPING AND APPEARS IN NO ACUTE DISTRESS. NO ACUTE CHANGES NOTED THIS NIGHT. WILL CONTINUE TO MONITOR.
--- NOTE | 2019-01-11 09:00 | NUR ---
HAS TWO SMALL OPEN AREAS ABOUT 1/4 TO 1/2 CM IN CREVICE OF BUTTOCK. MEPILEX APPLIED.
[2019-01-11 16:51] LABS: Vancomycin, Trough 14.5 ug/mL (5.0-10.0)
--- NOTE | 2019-01-11 16:54 | NUR ---
ALERT, INTERMITTENT ORIENTED AND ANSWERS QUESTIONS APPROPRIATELY. UNLABORED RESPIRATIONS. MEDIPORT INFUSING TKO. BED IN LOW POSITION. CALL LIGHT WITHIN REACH. TELE ON. WCTM
--- NOTE | 2019-01-12 01:24 | NUR ---
CALLED QUANTITATIVE DEVELOPER, SR [phone]
--- NOTE | 2019-01-12 04:50 | NUR ---
NOC SHIFT SUMMARY PT HAS BEEN PLEASANT AND COOPERATIVE WITH CARE THIS NIGHT. SHE HAS SLEPT MUCH OF NIGHT. VSS. WHEN SHE IS AWAKE SHE HAS BEEN AAOX3. RESP ARE EVEN AND UNLABORED. NO ACUTE CHANGES NOTED THIS NIGHT. PT APPEARS IN NO ACUTE DISTRESS. WILL CONTINUE TO MONIOTR.
[2019-01-12 08:36] LABS: Hematocrit 24.8 % (33.0-51.0); Hemoglobin 7.9 g/dL (11.5-16.0); Mean Corpuscular HGB 35.6 pg (26.0-34.0); Mean Corpuscular HGB Conc 31.9 g/dL (31.5-36.5); Mean Corpuscular Volume 112 fL (80-100); Mean Platelet Volume 11.1 fL (9.1-12.4); NRBC ABSOLUTE 0.02 K/mm3 (0.00-0.02); NRBC Auto 0.1 /100 WBC (0.0-0.2); Platelet Count 182 K/mm3 (150-400); RDW Coefficient Variation 20.5 % (11.7-14.2); RDW Standard Deviation 82.4 fL (35.1-46.3); Red Blood Cell Count 2.22 M/mm3 (3.80-5.20); White Blood Cell Count 28.32 K/mm3 (4.00-11.30)
[2019-01-12 08:44] LABS: Anion Gap 6 mmol/L (6-16); Blood Urea Nitrogen 8 mg/dL (8-24); CO2, Blood 27 mmol/L (21-32); Chloride, Blood 108 mmol/L (98-108); Creatinine, Blood 0.67 mg/dL (0.40-1.00); Glomerular Filtration Rate >60 (60-); Glucose, Blood 105 mg/dL (70-99); Phosphorus, Blood 3.1 mg/dL (2.5-4.9); Potassium, Blood 3.8 mmol/L (3.5-5.5); Sodium, Blood 141 mmol/L (136-145)
--- NOTE | 2019-01-12 08:45 | NUR ---
PER ANSWERING SERVICE FOR CONSULT MD, UNABLE TO PAGE MD TWICE FOR SAME PATIENT. MD CRANE WITH PATIENT WILL WAIT TILL WEEKDAY TO F/U.
[2019-01-12 08:52] LABS: BASOPHILS PERCENT MAN 0 % (0-2); EOSINOPHILS PERCENT MAN 0 % (0-6); LYMPHOCYTES ABSOLUTE MAN 8.21 K/mm3 (0.84-5.20); LYMPHOCYTES PERCENT MAN 29 % (21-46); METAMYELOCYTE ABSOLUTE MAN 0.28 K/mm3 (0.00-0.00); METAMYELOCYTE PERCENT MAN 1 % (0-0); MONOCYTES ABSOLUTE MAN 0.84 K/mm3 (0.16-1.47); MONOCYTES PERCENT MAN 3 % (4-13); NEUTROPHILS ABSOLUTE MAN 18.97 K/mm3 (1.96-9.15); SEG NEUTROPHILS PERCENT MAN 67 % (41-73); TOTAL CELLS COUNTED 100
--- NOTE | 2019-01-12 14:11 | NUR ---
STARTED COUGHING. REFUSES ANYTHING FOR COUGH.
--- NOTE | 2019-01-12 17:34 | NUR ---
ALERT, SOMETIMES ORIENTED. ON OXYGEN. MAX 2 PERSON ASSIST TO CHAIR. MEDIPORT INFUSING ANTIBIOTICS T/O SHIFT. INCONTINENT OF URINE. DOES NOT SEEM TO KNOW WHEN SHE HAS URINATED. CHEST XRAY ORDERED. NO ACUTE DISTRESS NOTED. WCTM.
[2019-01-13 06:46] LABS: Hematocrit 24.8 % (33.0-51.0); Hemoglobin 7.9 g/dL (11.5-16.0); Mean Corpuscular HGB 36.1 pg (26.0-34.0); Mean Corpuscular HGB Conc 31.9 g/dL (31.5-36.5); Mean Corpuscular Volume 113 fL (80-100); Mean Platelet Volume 10.7 fL (9.1-12.4); Platelet Count 187 K/mm3 (150-400); RDW Coefficient Variation 19.9 % (11.7-14.2); RDW Standard Deviation 82.9 fL (35.1-46.3); Red Blood Cell Count 2.19 M/mm3 (3.80-5.20); White Blood Cell Count 27.76 K/mm3 (4.00-11.30)
[2019-01-13 07:08] LABS: Anion Gap 4 mmol/L (6-16); Blood Urea Nitrogen 10 mg/dL (8-24); Bun/Creatinine Ratio 13.5 (12.0-20.0); CO2, Blood 27 mmol/L (21-32); Chloride, Blood 109 mmol/L (98-108); Creatinine, Blood 0.74 mg/dL (0.40-1.00); Glomerular Filtration Rate >60 (60-); Glucose, Blood 98 mg/dL (70-99); Phosphorus, Blood 3.7 mg/dL (2.5-4.9); Potassium, Blood 3.7 mmol/L (3.5-5.5); Sodium, Blood 140 mmol/L (136-145)
--- NOTE | 2019-01-13 07:25 | NUR ---
NOC SHIFT SUMMARY PT IS PLEASANT AND COOPERATIVE WITH CARE THIS NIGHT. SHE HAS SLEPT MOST OF NIGHT AND PREFERS NOT TO BE AWOKEN UNLESS NEEDED. VSS. NOT ACUTE CHANGES NOTED. REPORT TO ONCOMING RN.
[2019-01-13 07:38] LABS: BASOPHILS PERCENT MAN 0 % (0-2); EOSINOPHILS PERCENT MAN 0 % (0-6); LYMPHOCYTES ABSOLUTE MAN 14.43 K/mm3 (0.84-5.20); LYMPHOCYTES PERCENT MAN 52 % (21-46); MONOCYTES ABSOLUTE MAN 1.66 K/mm3 (0.16-1.47); MONOCYTES PERCENT MAN 6 % (4-13); NEUTROPHILS ABSOLUTE MAN 11.65 K/mm3 (1.96-9.15); SEG NEUTROPHILS PERCENT MAN 42 % (41-73); TOTAL CELLS COUNTED 100
--- NOTE | 2019-01-13 14:28 | NUR ---
SHE SAT UP FOR ABOUT 1 1/2 HRS AFTER PT WORKED WITH HER. BACK TO BED WITH 1 ASSIST BUT IT TOOK US 3 TRIES TO GET TO A STAND. SHE IS VERY WEAK. HER DAUGHTER OR DAUGHTERS VISITED FOR ABOUT 30 MIN. SHE HAS SOME CONFUSION BUT HAS NOT SHOWN ANY INTEREST IN PULLING OUT HER MEDIPORT NEEDLE SO FAR TODAY.
--- NOTE | 2019-01-13 16:37 | NUR ---
SHE IS ASLEEP THIS AFTERNOON AFTER HER TIME UP IN THE CHAIR AND THEN HAVING VISITORS. SHE HAS EATEN PARTS OF HER MEALS TODAY.TEDS ON BILATERALLY.MEDIPORT PATENT AND PENELOPE BLOOD WELL FOR HER [facility] TROUGH SHORTLY AGO. O2 2L. NO COMPLAINTS.
--- NOTE | 2019-01-13 16:41 | NUR ---
DROPLET ISOLATION STARTED TODAY FOR POSITIVE SPUTUM CULTURE SHOWING MRSA.
[2019-01-13 16:45] LABS: Vancomycin, Trough 19.5 ug/mL (5.0-10.0)
--- NOTE | 2019-01-14 06:06 | NUR ---
SUMMARY: A/OX3 BUT SEEMS TO BE OCCASIONALLY FORGETFULL AT TIMES SO BED ALARM ON FOR POSSIBLE IMPULSIVITIY. PT DIDN'T MAKE ANY ATTEMPTS OOB THIS SHIFT THOUGH. PROGRESS NOTE WAS DISCUSSED W/PT'S DAUGHTER AT START OF SHIFT PER REQUEST AND ALL Q'S WERE ANSWERED. DAUGHTER TO BRING IN HOME RESP MED. HER MEDIPORT TO . IS ACCESSED AND HAS NS INFUSING TKO. IV VANCO RECIEVED FOR PNM AND WBC'S IMPROVED AGAIN THIS AM. PT IN DROPLET ISO FOR MRSA IN SPUTUM. ATTENDS CHANGED FOR URINARY INCONTINENCE AND 2 BM'S. SHE REMAINS ON 1L O2 VIA NC W/SPO2 WNL. OCCASIONAL MOIST TARGET AIRCRAFT TECHNICIAN COUGH OBSERVED BUT DENIES RESP DISTRESS OR SOB. PT DENIES PAIN AND COMPLAINTS. NO ACUTE CHANGES, VSS/AFEBRILE. H&H CONT'S TO DROP, WILL ENSURE DAY STAFF ARE AWARE. WCTM/REPORT TO DAY RN.
[2019-01-14 06:08] LABS: Hematocrit 24.4 % (33.0-51.0); Hemoglobin 7.6 g/dL (11.5-16.0); Mean Corpuscular HGB 35.3 pg (26.0-34.0); Mean Corpuscular HGB Conc 31.1 g/dL (31.5-36.5); Mean Corpuscular Volume 114 fL (80-100); Mean Platelet Volume 10.8 fL (9.1-12.4); Platelet Count 208 K/mm3 (150-400); RDW Coefficient Variation 19.6 % (11.7-14.2); Red Blood Cell Count 2.15 M/mm3 (3.80-5.20); White Blood Cell Count 24.66 K/mm3 (4.00-11.30)
[2019-01-14 06:26] LABS: Albumin, Blood 1.9 g/dL (3.4-5.0); Anion Gap 6 mmol/L (6-16); Blood Urea Nitrogen 11 mg/dL (8-24); Bun/Creatinine Ratio 14.3 (12.0-20.0); CO2, Blood 26 mmol/L (21-32); Calcium, Blood 9.1 mg/dL (8.5-10.1); Chloride, Blood 110 mmol/L (98-108); Creatinine, Blood 0.77 mg/dL (0.40-1.00); Glomerular Filtration Rate >60 (60-); Glucose, Blood 91 mg/dL (70-99); Phosphorus, Blood 3.4 mg/dL (2.5-4.9); Potassium, Blood 3.6 mmol/L (3.5-5.5); Sodium, Blood 142 mmol/L (136-145)
[2019-01-14 07:12] LABS: BASOPHILS PERCENT MAN 0 % (0-2); EOSINOPHILS PERCENT MAN 0 % (0-6); LYMPHOCYTES ABSOLUTE MAN 11.59 K/mm3 (0.84-5.20); LYMPHOCYTES PERCENT MAN 47 % (21-46); MONOCYTES ABSOLUTE MAN 1.97 K/mm3 (0.16-1.47); MONOCYTES PERCENT MAN 8 % (4-13); NEUTROPHILS ABSOLUTE MAN 11.09 K/mm3 (1.96-9.15); SEG NEUTROPHILS PERCENT MAN 45 % (41-73); TOTAL CELLS COUNTED 100
--- NOTE | 2019-01-14 13:49 | NUR ---
SHE SAT UP FOR A COUPLE OF HRS AND WAS EXHAUSTED. SHE COULD NOT STAND UP WITH ONLY 1 ASSIST. IT TOOK 2. SHE IS BACK IN BED. BED ALARM ON. SHE IS CONFUSED BUT RE-DIRECTABLE.
--- NOTE | 2019-01-14 17:42 | NUR ---
SHE IS RESTING COMFORTABLY IN BED AFTER HER DAUGHTERS JUST VISITED FOR ABOUT AN HOUR. DESTINY HAS BEEN MORE CONFUSED TODAY THAN YESTERDAY BUT COOPERATIVE AND PLEASANT. KNEE TEDS ON BILAT. SHE WORKED WITH PT AND OT TODAY. VSS. APPETITE SMALL. DROPLET ISOLATION CONTINUES FOR MRSA SPUTUM.
[2019-01-15 06:10] LABS: Hematocrit 25.3 % (33.0-51.0); Hemoglobin 7.9 g/dL (11.5-16.0); Mean Corpuscular HGB 35.6 pg (26.0-34.0); Mean Corpuscular HGB Conc 31.2 g/dL (31.5-36.5); Mean Corpuscular Volume 114 fL (80-100); Mean Platelet Volume 10.3 fL (9.1-12.4); Platelet Count 246 K/mm3 (150-400); RDW Coefficient Variation 19.2 % (11.7-14.2); RDW Standard Deviation 79.1 fL (35.1-46.3); Red Blood Cell Count 2.22 M/mm3 (3.80-5.20); White Blood Cell Count 27.41 K/mm3 (4.00-11.30)
[2019-01-15 06:19] LABS: Stool Occult Blood Guaiac 1 Neg (Neg)
[2019-01-15 06:29] LABS: Anion Gap 5 mmol/L (6-16); Blood Urea Nitrogen 13 mg/dL (8-24); CO2, Blood 28 mmol/L (21-32); Calcium, Blood 9.3 mg/dL (8.5-10.1); Chloride, Blood 111 mmol/L (98-108); Creatinine, Blood 0.81 mg/dL (0.40-1.00); Glomerular Filtration Rate >60 (60-); Glucose, Blood 91 mg/dL (70-99); Phosphorus, Blood 3.5 mg/dL (2.5-4.9); Potassium, Blood 3.7 mmol/L (3.5-5.5); Sodium, Blood 144 mmol/L (136-145)
[2019-01-15 06:33] LABS: Percent Saturation 19.9 % (15.0-50.0)
[2019-01-15 06:40] LABS: BAND PERCENT MAN 1 % (0-8); BASOPHILS PERCENT MAN 0 % (0-2); EOSINOPHILS ABSOLUTE MAN 0.54 K/mm3 (0.00-0.68); EOSINOPHILS PERCENT MAN 2 % (0-6); LYMPHOCYTES ABSOLUTE MAN 15.62 K/mm3 (0.84-5.20); LYMPHOCYTES PERCENT MAN 57 % (21-46); MONOCYTES ABSOLUTE MAN 0.82 K/mm3 (0.16-1.47); MONOCYTES PERCENT MAN 3 % (4-13); NEUTROPHILS ABSOLUTE MAN 10.41 K/mm3 (1.96-9.15); SEG NEUTROPHILS PERCENT MAN 37 % (41-73); TOTAL CELLS COUNTED 100
--- NOTE | 2019-01-15 07:37 | NUR ---
Rn summary: Patient is alert x2-3 and cooperative. Pt has flat affect. Breath sounds with exp. wheeze all lobes. Pt is on 1 liter O2 with sats at 94%. Pt has rested most of the shift. Pt is incontinent of urine. Had small stool sent for occult blood. Mediport patent to R chest. Call light in reach.
[2019-01-15] MEDS ORDERED: Tylenol325 MG PO (11:34)
[2019-01-15] MEDS ORDERED: ROBITUSSIN COU237 M1 PO (11:34)
[2019-01-15] MEDS ORDERED: DOXY100 PO (11:35)
[2019-01-15] MEDS ORDERED: DOCU100 PO (11:35)
[2019-01-15] MEDS ORDERED: Vsl#3 Capsule1 EACH PO (11:36)
--- NOTE | 2019-01-15 15:00 | NUR ---
TRANSPORTED TO SKILLED NURSING WITH [employer] [facility]SPORT IN STRETCHER; ALL BELONGINGS SENT WITH PATIENT. PT TO FOLLOW UP WITH HOME HEALTH. YOON PALLIATIVE CARE RN NOTIFIED TO CONTACT PT'S DAUGHTER TO DISCUSS FUTURE CARE OPTIONS BEFORE DISCHARGE TODAY.
== END 2019-01-15 14:55 | disposition home or self-care (01) | DRG 871 ==
LOC: ER 08:31 → MEDS 11:49 → ENPENDDIS 01-15 10:54 → MEDS 01-15 14:55
PROVIDERS: Emergency Medicine; Internal Medicine; Pharmacist Critical Care; ADMIT Internal Medicine
PROC: 30233N1 Transfusion of Nonautologous Red Blood Cells into Peripheral Vein, Percutaneous Approach (ICD-10-PCS; principal; 2019-01-12)
DX: A41.9 Sepsis, unspecified organism (principal); J15.211 Pneumonia due to Methicillin susceptible Staphylococcus aureus; J96.01 Acute respiratory failure with hypoxia; J44.0 Chronic obstructive pulmonary disease with (acute) lower respiratory infection; C34.90 Malignant neoplasm of unspecified part of unspecified bronchus or lung; C79.2 Secondary malignant neoplasm of skin; C79.31 Secondary malignant neoplasm of brain; C91.90 Lymphoid leukemia, unspecified not having achieved remission; E46 Unspecified protein-calorie malnutrition; C78.89 Secondary malignant neoplasm of other digestive organs; C79.00 Secondary malignant neoplasm of unspecified kidney and renal pelvis; Z51.5 Encounter for palliative care; R65.20 Severe sepsis without septic shock; J44.9 Chronic obstructive pulmonary disease, unspecified; D64.81 Anemia due to antineoplastic chemotherapy; L89.301 Pressure ulcer of unspecified buttock, stage 1; R62.7 Adult failure to thrive; I48.91 Unspecified atrial fibrillation; I10 Essential (primary) hypertension; K21.9 Gastro-esophageal reflux disease without esophagitis; Z66 Do not resuscitate; F17.210 Nicotine dependence, cigarettes, uncomplicated; D63.0 Anemia in neoplastic disease
CPT/HCPCS: 36415; 36430; 71046; 80048; 80053; 80069; 80202; 82248; 82272; 82607; 82728; 82746; 83540; 83550; 83605; 83735; 83880; 84145; 84439; 84443; 85025; 86850; 86900; 86901; 86923; 87040; 87070; 87077; 87186; 87205; 94640; 94760; 94761; 96365; 96366; 96367; 97116; 97162; 97167; 97530; 97535; 99285-25; A9270; J0456; J0696; J1642; J1940; J2543; J3370; J7030; J7040; J7050; P9016